=== PATIENT | female | born 1990 | race Caucasian/White ===

== ENCOUNTER 2016-08-02 12:32 | Emergency (ER) | payer BC ==
[2016-08-02 11:17] LABS: BASOPHIL# 0.1 X10e3 (0-0.3); BASOPHIL% 1.2 % (0-2.5); EOSINOPHIL# 0.1 X10e3 (0-0.7); EOSINOPHIL% 1.1 % (0.0-7.0); HEMATOCRIT 39.6 % (35.0-45.0); LYMPHOCYTE# 1.8 X10e3 (1.0-3.5); MEAN CELL VOLUME 83.6 FL (83-96); MEAN CORPUSCULAR HEMOGLOBIN 27.3 PG (28-34); MEAN CORPUSCULAR HGB CONC 32.7 g/dL (30-36); MONOCYTE# 0.6 X10e3 (0-1.0); MONOCYTE% 7.3 % (3.0-12.0); NEUTROPHIL# 5.3 X10e3 (1.5-7.1); NEUTROPHIL% 67.4 % (40-75); PLATELET COUNT 286 X10e3 (140-420); RED BLOOD COUNT 4.74 X10e (3.90-5.30); RED CELL DISTRIBUTION WIDTH 12.8 % (11.0-15.5); WHITE BLOOD COUNT 7.9 X10e3 (4.0-10.5)
[2016-08-02 11:18] LABS: DIFF IND NO
[2016-08-02 11:54] LABS: ALBUMIN SERUM 3.4 g/dL (3.5-5.0); ALKALINE PHOSPHATASE 42 U/L (32-92); ALT (SGPT) 19 U/L (10-40); AST (SGOT) 22 U/L (10-42); BILIRUBIN,TOTAL 0.6 mg/dL (0.2-2.0); BLOOD UREA NITROGEN 13 mg/dL (9-23); BUN/CREATININE RATIO 18.57; CALCIUM SERUM 8.9 mg/dL (8.4-10.2); CARBON DIOXIDE 26 mmol/L (22-31); CHLORIDE 103 mmol/L (100-111); CREATININE SERUM 0.7 mg/dL (0.6-1.4); GLOM FILT RATE Estimated 119.6 mL/min (>60); GLUCOSE FASTING 159 mg/dL (70-110); LIPASE 20 U/L (22-51); POTASSIUM 4.3 mmol/L (3.5-5.1); PROTEIN TOTAL SERUM 7.7 g/dL (6.0-8.3); SODIUM 137 mmol/L (135-145)
[2016-08-02 11:55] LABS: BILIRUBIN, DIRECT <0.1 mg/dL (0.0-0.2); BILIRUBIN,INDIRECT 0.5 mg/dL (0.0-0.9)
[~2016-08-02 12:32] MED LIST: ALLEGRA PO; BACTRIM DS TABL1 TA2 PO; BENTYL20 MG PO; CIPRO PO; CLINDAMYCIN HC300 MG PO; DOXYCYCLINE PO; FIORICET1 TAB PO; FLEXERIL10 MG PO; FLONASE16 GM; GLUCOPHAGE500 M1 PO; IMMODIUM1 MG/5 ML; IMODIUM2 MG PO; MUCINEX D ER T1 EACH PO; MULTI-VITAMIN1 EAC1 PO; NAPROXEN500 M1 PO; NO MEDICATIONS; PHENERGAN DM PO; PHENERGAN PO; PHENERGAN25 M1 PO; PHENTERMINE; PREDNISONE10 MG/DOSE PO; ULTRAM PO; VOLTAREN50 MG PO; VOLTAREN75 MG PO; ZITHROMAX PO; ZOFRAN PO; ZOFRANODT PO
[2016-08-02 12:52] LABS: URINE SOURCE CLEAN CATCH
[2016-08-02 13:30] LABS: URINE APPEARANCE CLEAR; URINE BILIRUBIN NEG (NEG); URINE BLOOD NEG (NEG); URINE COLOR YELLOW; URINE GLUCOSE NEG (NEG); URINE KETONE NEG (NEG); URINE LEUKOCYTE ESTERASE NEG (NEG); URINE NITRATE NEG (NEG); URINE PH 6.5 (5-8); URINE PROTEIN NEG (NEG); URINE SPECIFIC GRAVITY 1.015 (1.003-1.035); URINE UROBILINOGEN 0.2 MG/DL (NEG)
[2016-08-02 13:34] LABS: CULTURE INDICATED? NO
[2016-08-14] MEDS ORDERED: VITAMIN D1000 UNIT PO (10:54)
[2016-08-14] MEDS ORDERED: PHENTERMINE H37.5 M1 PO (10:55)
== END 2016-08-02 14:17 | disposition home or self-care (01) ==
LOC: CED 12:32
DX: K62.5 Hemorrhage of anus and rectum (principal); E11.9 Type 2 diabetes mellitus without complications
CPT/HCPCS: 80048; 80076; 81003; 83690; 84703; 85025; 99283

== ENCOUNTER → 2016-08-14 | Day surgery (SDC) | payer BC ==
[~2016-08-14] MED LIST changes: +AFREZZA1 EAC4 SUBQ; +AUGMENTIN PO; +HAIR-SKIN-NAIL1 EACH PO; +LINZESS72 MCG PO; +LORTAB 7.5-3251 EACH PO; +MULTI VITAMIN1 EACH PO; +PHENTERMINE H37.5 M1 PO; +TRESIBA FL200 UNIT/1; +VICTOZA0.6 MG/0.1 SUBQ; +VITAMIN D1000 UNIT PO; +VITAMIN D35000 UNIT PO; +ZOFRAN8 MG PO
--- NOTE | ~2016-08-14 | OR ---
Unit #: [id number] #: [id number] Patient: DRE DELGADO [id number] [address] [address] [id number] O MR#: [id number] NAME: DRE DELGADO ROOM: Date of Procedure: 08/14/2016 Admission Date: 08/14/2016 Surgeon: Fabio Sommers M.D. : 1990 Attending Physician: Fabio Sommers M.D. Primary Care Physician: Tomas Soto M.D. OPERATIVE REPORT JOB NOTE: CC: DR. WORKMAN PROCEDURE PERFORMED Colonoscopy to cecum. INDICATIONS FOR PROCEDURE A 26-year-old female with history of recurrent blood in the stool. MEDICATIONS Monitored anesthesia. POSTOPERATIVE FINDINGS 1. Normal colon exam to cecum and terminal ileum. 2. Small internal hemorrhoids. 3. No active bleeding was seen. PLAN The patient to call or return for recurrent bleeding. DESCRIPTION OF PROCEDURE The patient was explained of the procedure, risks, and benefits along with risks and benefits of anesthesia. She was brought to the endoscopy room. Propofol anesthesia was given. Rectal exam was done, which was normal. Colonoscope was lubricated, passed up the rectum, advanced under direct vision all the way to cecum. Cecum was identified by ileocecal valve and appendiceal orifice. I then started to pull the scope out carefully looking. No polyps, masses, or colitis was seen. No active bleeding was seen. I retroflexed in the rectum, small hemorrhoids seen. Scope was gently pulled out. She tolerated it well. Dictated by... Ros Aguirre/brittani TD: 08/15/2016 22:31 JOB #: [id number] CC: . Unit #: [id number] #: [id number] Patient: DRE DELGADO OPERATIVE REPORT Page 1 of 1 X Fabio Sommers MD X PROCEDURE OPERATIVE NOTE
== END | disposition home or self-care (01) ==
LOC: COPS 09:58
DX: K64.8 Other hemorrhoids (principal); R19.5 Other fecal abnormalities; E11.9 Type 2 diabetes mellitus without complications; Z79.2 Long term (current) use of antibiotics; Z79.4 Long term (current) use of insulin; Z79.899 Other long term (current) drug therapy; Z98.890 Other specified postprocedural states
CPT/HCPCS: 82947; 84703; J2250

== ENCOUNTER 2016-11-14 08:50 | Inpatient (IN) | payer BC ==
[~2016-11-14] VITALS: Ht 152.4 cm; Wt 96.0 kg
--- NOTE | ~2016-11-14 | OR ---
Unit #: [id number] #: [id number] Patient: DRE DELGADO [id number] [address] [place], [place] [address] [id number] I MR#: [id number] NAME: DRE DELGADO ROOM: [facility] Date of Procedure: 11/14/2016 Admission Date: 11/14/2016 Surgeon: Farhat Arnold Jr., M.D. : 1990 Attending Physician: Farhat Arnold Jr., M.D. Primary Care Physician: Tomas Soto M.D. OPERATIVE REPORT INDICATIONS FOR PROCEDURE The patient is a 26-year-old obese white female, who recently underwent colonoscopy for intermittent rectal pain and problems and was noted to have evidence of internal hemorrhoids. She was seen in the office yesterday complaining of rectal pain and it was felt she was having pain from her prolapsing internal hemorrhoids. She is brought in this time for exam under anesthesia with hemorrhoidal stapling. The patient understands the procedure including the risk and consents. PREOPERATIVE DIAGNOSIS Painful internal hemorrhoids. POSTOPERATIVE DIAGNOSIS Perirectal abscess to the right of the midline. This was approximately 10 cm in diameter. ANESTHESIA General with endotracheal intubation and 0.5% Marcaine with epinephrine and a perianal block. PROCEDURE PERFORMED Exam under anesthesia with incision and drainage and sharp excisional debridement using #10 blade scalpel of a moderate-sized perirectal abscess. DESCRIPTION OF PROCEDURE The patient was positioned in the supine position and after being anesthetized and intubated, she was placed in prone ahbijit-knife position, prepped and draped in routine fashion for hemorrhoidal stapling. Perianal block was performed, and the patient was noted to have pus draining from one of the injection sites and this was then opened and there was a large perirectal abscess extending to the right buttock. Cultures for aerobic and anaerobic organisms were obtained. The abscess itself was approximately 10 cm in diameter. It was opened with a #10 blade scalpel down to the deeper subcutaneous tissue and debrided with a #10 blade scalpel. After it was completely debrided, it was irrigated. Hemostasis was achieved with Bovie cautery and the wound was packed with Betadine moist dry dressings. Sterile dressings were applied externally. Estimated blood loss was less than 100 mL and the patient received less than 1000 mL crystalloid solution during the procedure. Sponges and instrument counts were correct x3. No drains used. No complications. The patient was taken to the recovery room with stable vital signs in satisfactory condition. Unit #: [id number] #: [id number] Patient: DRE DELGADO Dictated by... Farhat Arnold Jr. MMaggie HERNANDEZ/brittani TD: 11/14/2016 14:28 JOB #: [id number] OPERATIVE REPORT Page 1 of 1 X Farhat Arnold MD X PROCEDURE OPERATIVE NOTE
--- NOTE | ~2016-11-14 | DS ---
Unit #: [id number] #: [id number] Patient: DRE DELGADO [id number] [address] [place], [place] [address] [id number] I MR#: [id number] NAME: DRE DELGADO. ROOM: [facility] Age: 26 Sex: F Admission Date: 11/14/2016 : 1990 Discharge Date: 11/16/2016 Attending Physician: Farhat Arnold Jr., M.D. Primary Care Physician: Tomas Soto M.D. DISCHARGE SUMMARY DISCHARGE DIAGNOSES 1. Perirectal abscess with hemorrhoids. 2. Diabetes mellitus. 3. Morbid obesity. OPERATIVE PROCEDURE Exploration of perineum with incision, drainage, debridement of perirectal abscess. DISCHARGE MEDICATIONS 1. Lortab 7.5 mg one p.o. q.4 hours p.r.n. pain. 2. Augmentin 875 mg one p.o. b.i.d. 3. Zofran 4 mg one p.o. q.6 hours p.r.n. HISTORY OF PRESENT ILLNESS AND HOSPITAL COURSE This is a 26-year-old obese diabetic white female who presented with rectal pain. It was felt on examination in the office that it may be related to some hemorrhoids. It felt like she may need to have a procedure done. She was scheduled for a hemorrhoidal stapling but, at the time of surgical procedure, it was noted that she had a fairly good sized perirectal abscess. This was opened, drained and cleaned out. The wound was then packed. Postoperative course has been fairly benign. She did get 36 hours of IV antibiotics. She also got packing of the abscess cavity. This has continued to be an issue for the patient as she is going to go home. She will go ahead and get this packing done and come back and see us in the office for follow up evaluation in about nine days. She is to do no heavy lifting or strenuous activity. Dictated by.Bhumika. Ros Solares/elba TD: 11/18/2016 09:45 JOB #: [id number] Unit #: [id number] #: [id number] Patient: DRE DELGADO DISCHARGE SUMMARY Page 1 of 1 X Cm Tinsley MD DISCHARGE SUMMARY
--- NOTE | ~2016-11-14 | BMI ---
[facility] Nutrition Therapy DATE: 11/15/16 Patient: DRE DELGADO Physician: DAVID Address: [address] [place] [address] ROAD Room/Bed: [address] [place] [address], Zip: [place] [address] Admit Date: 11/14/16 Date of : [birth year] Height: 5 0 Weight: 211 96 HIGH BMI NOTE: DX: 26 Y.O. FEMALE ADMITTED FOR HEMORRHOIDS ANTHROPOMETRICS: 5'0", WT: 211# (96 KG), BMI: 41.2 DIET: CC RECOMMENDATIONS: 1. RECOMMEND TO ADD HH TO CURRENT DIET ORDER ABOVE TO PROMOTE GRADUAL WEIGHT LOSS TOWARDS HEALTHY BMI (19.0-25.0) OR +/-10%IBW RD WILL F/U PER PROTOCOL Respectfully, DINO MOORE MS, RD, LD [facility] Nutritional Services [facility] cc: client file
[~2016-11-14 08:50] MED LIST changes: -AFREZZA1 EAC4 SUBQ; -AUGMENTIN PO; -HAIR-SKIN-NAIL1 EACH PO; -LINZESS72 MCG PO; -LORTAB 7.5-3251 EACH PO; -MULTI VITAMIN1 EACH PO; -TRESIBA FL200 UNIT/1; -VICTOZA0.6 MG/0.1 SUBQ; -VITAMIN D35000 UNIT PO; -ZOFRAN8 MG PO
[2016-11-14 10:08] LABS: BASOPHIL# 0.1 X10e3 (0-0.3); BASOPHIL% 0.9 % (0-2.5); EOSINOPHIL# 0.2 X10e3 (0-0.7); EOSINOPHIL% 1.1 % (0.0-7.0); HEMATOCRIT 36.5 % (35.0-45.0); HEMOGLOBIN 12.2 gm/dL (12.0-16.0); LYMPHOCYTE# 1.8 X10e3 (1.0-3.5); LYMPHOCYTE% 11.4 % (17.0-45.0); MEAN CORPUSCULAR HEMOGLOBIN 27.5 PG (28-34); MEAN CORPUSCULAR HGB CONC 33.5 g/dL (30-36); MEAN PLATELET VOLUME 8.6 FL (6.5-11.5); MONOCYTE# 1.1 X10e3 (0-1.0); MONOCYTE% 6.7 % (3.0-12.0); NEUTROPHIL# 12.6 X10e3 (1.5-7.1); NEUTROPHIL% 79.9 % (40-75); PLATELET COUNT 317 X10e3 (140-420); RED BLOOD COUNT 4.46 X10e (3.90-5.30); RED CELL DISTRIBUTION WIDTH 12.5 % (11.0-15.5); WHITE BLOOD COUNT 15.8 X10e3 (4.0-10.5)
[2016-11-14 10:28] LABS: DIFF IND YES
[2016-11-14 10:30] LABS: PLATELET ESTIMATE NORMAL (NORMAL)
[2016-11-14 10:45] LABS: BUN/CREATININE RATIO 11.42; CALCIUM SERUM 9.1 mg/dL (8.4-10.2); CREATININE SERUM 0.7 mg/dL (0.6-1.4); GLOM FILT RATE Estimated 119.6 mL/min (>60); POTASSIUM 4.5 mmol/L (3.5-5.1)
[2016-11-14] MEDS ORDERED: AFREZZA1 EAC4 SUBQ (10:53)
[2016-11-14] MEDS ORDERED: TRESIBA FL200 UNIT/1 (10:53)
[2016-11-14] MEDS ORDERED: HAIR-SKIN-NAIL1 EACH PO (10:55)
[2016-11-14] MEDS ORDERED: MULTI VITAMIN1 EACH PO (10:56)
[2016-11-14] MEDS ORDERED: VITAMIN D35000 UNIT PO (14:26)
[2016-11-14] MEDS ORDERED: VICTOZA0.6 MG/0.1 SUBQ (14:27)
[2016-11-14] MEDS ORDERED: LINZESS72 MCG PO (14:28)
[2016-11-14] MEDS ORDERED: ZOFRAN8 MG PO (14:28)
[2016-11-16] MEDS ORDERED: AUGMENTIN PO (08:44)
[2016-11-16] MEDS ORDERED: ZOFRAN PO (08:45)
[2016-11-16] MEDS ORDERED: LORTAB 7.5-3251 EACH PO (08:45)
== END 2016-11-16 12:06 | disposition home or self-care (01) | DRG 357 ==
LOC: CSUR 08:50 → C4C 13:30 → CPACUOF 13:30 → C4C 13:30 → CPACUOF 14:03 → CSUR 14:03 → C4C 15:14 → CPACUOF 15:14 → C4C 11-16 12:06
PROVIDERS: Surgery
PROC: 0JBB0ZZ Excision of Perineum Subcutaneous Tissue and Fascia, Open Approach (ICD-10-PCS; principal; 2016-11-14 12:00)
DX: K61.1 Rectal abscess (principal); Z68.41 Body mass index [BMI] 40.0-44.9, adult; K64.8 Other hemorrhoids; E66.9 Obesity, unspecified; E66.01 Morbid (severe) obesity due to excess calories; E11.9 Type 2 diabetes mellitus without complications; Z79.4 Long term (current) use of insulin
CPT/HCPCS: 80048; 82947; 84703; 85025; 87070; 87075; 87077; 87186; 87205; 94010; J0330; J1170; J1815; J2250; J2270; J2405; J2543; J2550; J3010